=== PATIENT | female | born 1950 | race Caucasian/White ===

== ENCOUNTER → 2016-10-26 09:34 | Outpatient (CLI) | payer MEDICARE ==
[2015-02-14 10:14] VITALS: BMI 29.8
[~2016-10-26 09:34] MED LIST: ACIDOPHILUS LAC1 CAP PO; BAYER CHEWABLE81 MG PO; BIOTIN5 MG PO; COLACE100 MG PO; DIPROLENE 0.05%60 M1 TOPICAL; FLUTICASONE PRO16 GM NS; HYDROCODONE-APA1 TAB PO; KRILL OIL 1,001 EAC1 PO; LOTRISONE CREAM45 GM TOPICAL; LYRICA300 MG PO; MACRODANTIN100 MG PO; MIDODRINE HCL5 MG PO; OXYCONTIN10 MG PO; PACERONE200 MG PO; PRILOSEC20 MG PO; RENA-VITE TABL0.8 MG PO; RYTHMOL150 MG PO; SUDAFED PE PO; WELLBUTRIN XL150 M1 PO; XANAX0.5 MG PO; ZYRTEC10 MG PO
[2016-10-26 11:52] LABS: APPEARANCE CLOUDY (CLEAR); BACTERIA MANY /hpf (NONE SEEN); BILIRUBIN NEGATIVE (NEGATIVE); COLOR YELLOW (YELLOW); EPITHELIAL CELLS 0-5 /hpf (0-5); GLUCOSE NEGATIVE (NEGATIVE); KETONE NEGATIVE (NEGATIVE); LEUKOCYTE ESTERASE 2+ (NEGATIVE); NITRITE POSITIVE (NEGATIVE); PROTEIN 1+ mg/dL (NEGATIVE); RED CELLS - URINE 0-5 /hpf (0-5); SPECIFIC GRAVITY 1.005 (1.005-1.020); UROBILINOGEN NORMAL (NORMAL); WHITE CELLS - URINE >50 /hpf (0-5)
== END | disposition home or self-care (01) ==
LOC: D.LABREF 09:34
PROVIDERS: Student in an Organized Health Care Education/Training Program
DX: N39.0 Urinary tract infection, site not specified (principal)

== ENCOUNTER → 2017-10-15 11:39 | Outpatient (CLI) | payer MEDICARE ==
[2015-02-14 10:14] VITALS: BMI 29.8
[2017-10-15 16:53] LABS: APPEARANCE HAZY (CLEAR); BILIRUBIN NEGATIVE (NEGATIVE); COLOR YELLOW (YELLOW); GLUCOSE NEGATIVE (NEGATIVE); KETONE NEGATIVE (NEGATIVE); NITRITE POSITIVE (NEGATIVE); PROTEIN 1+ mg/dL (NEGATIVE); SPECIFIC GRAVITY 1.005 (1.005-1.020); UROBILINOGEN NORMAL (NORMAL)
[2017-10-15 17:23] LABS: EPITHELIAL CELLS 0-5 /hpf (0-5)
[2017-10-15 17:24] LABS: BACTERIA MODERATE /hpf (NONE SEEN)
== END | disposition home or self-care (01) ==
LOC: D.LABREF 11:39
PROVIDERS: Student in an Organized Health Care Education/Training Program
DX: N39.0 Urinary tract infection, site not specified (principal)

== ENCOUNTER → 2017-10-24 11:18 | Outpatient (CLI) | payer MEDICARE ==
[2015-02-14 10:14] VITALS: BMI 29.8
== END | disposition home or self-care (01) ==
LOC: D.LABREF 11:18
DX: R19.7 Diarrhea, unspecified (principal)

== ENCOUNTER → 2018-03-13 11:06 | Outpatient (CLI) | payer MEDICARE ==
[2015-02-14 10:14] VITALS: BMI 29.8
[2018-03-13 13:16] LABS: APPEARANCE CLOUDY (CLEAR); COLOR YELLOW PINK (YELLOW); GLUCOSE NEGATIVE (NEGATIVE); NITRITE NEGATIVE (NEGATIVE); PROTEIN 3+ mg/dL (NEGATIVE)
[2018-03-13 13:17] LABS: BACTERIA MANY /hpf (NONE SEEN); BILIRUBIN NEGATIVE (NEGATIVE); EPITHELIAL CELLS OCC /hpf (0-5); KETONE NEGATIVE (NEGATIVE); RED CELLS - URINE >50 /hpf (0-5); UROBILINOGEN NORMAL (NORMAL)
== END | disposition home or self-care (01) ==
LOC: D.LABREF 11:06
PROVIDERS: Student in an Organized Health Care Education/Training Program
DX: N39.0 Urinary tract infection, site not specified (principal)

== ENCOUNTER → 2018-05-17 17:10 | Outpatient (CLI) | payer MEDICARE ==
[2015-02-14 10:14] VITALS: BMI 29.8
== END | disposition home or self-care (01) ==
LOC: D.LABREF 17:10
DX: N39.0 Urinary tract infection, site not specified (principal)